=== PATIENT | male | born 1980 | race Hispanic/Latino ===

== ENCOUNTER 2020-01-06 10:45 | Emergency (ER) | payer SELFPAY ==
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
[2020-01-06] MEDS ORDERED: Cyclobenzaprine 10 MG TAB ONE (11:55)
[2020-01-06] MEDS ORDERED: Ketorolac Tromethamine 60 MG/2 ML VIAL ONE (11:55)
[2020-01-06] MEDS ORDERED: HYDROcodone/Acetaminophen 5/325 mg Tablet ONE (11:55)
== END 2020-01-06 12:20 | disposition home or self-care (01) ==
LOC: MADERS 10:45
DX: S16.1XXA Strain of muscle, fascia and tendon at neck level, initial encounter (principal); M62.838 Other muscle spasm; V59.9XXA Occupant (driver) (passenger) of pick-up truck or van injured in unspecified traffic accident, initial encounter
CPT/HCPCS: 72125; 96372; J1885